=== PATIENT | female | born 1945 | race Caucasian/White ===

== ENCOUNTER 2019-01-15 10:15 | Outpatient (CLI) | payer BC ==
--- NOTE | 2019-01-15 11:04 | ULT ---
Gallbladder ultrasound: Multiple grayscale images of right upper quadrant obtained according to protocol. INDICATION: Pain FINDINGS: Liver: Hepatic steatosis. Gallbladder: Normal Gallbladder wall: Normal. Chavez's Sign: Negative Common bile duct is normal. Ascites: None IMPRESSION: Normal gallbladder. Hepatic steatosis.
== END 2019-01-15 10:16 | disposition home or self-care (01) ==
LOC: SCSULT 10:15
PROVIDERS: ATTEND Family Medicine
DX: R10.11 Right upper quadrant pain (principal); K76.0 Fatty (change of) liver, not elsewhere classified
CPT/HCPCS: 76705